=== PATIENT | male | born 1945 | race Caucasian/White ===

== ENCOUNTER 2023-06-04 19:34 | Emergency (ER) | payer MEDICARE ==
[~2023-06-04] VITALS: Ht 165.1 cm; Wt 68.1 kg
--- NOTE | 2023-06-04 21:09 | NUR ---
pt's friend called named Sher he has power of banking supervisor on this pt. please call with info. [phone]
[2023-06-04 21:24] LABS: BASOPHILS % (AUTO) 0.3 % (0-1); EOSINOPHILS # (AUTO) 0.2 X10'3 (0-0.9); HEMATOCRIT 40.6 % (42.0-52.0); LYMPHOCYTES # (AUTO) 0.8 X10'3 (1.1-4.8); LYMPHOCYTES % (AUTO) 10.8 % (21-51); MEAN CORPUSCULAR HEMOGLOBIN 31.9 PG (27.0-31.0); MEAN CORPUSCULAR HGB CONC 34.6 g/dL (33.0-36.5); MEAN CORPUSCULAR VOLUME 92.3 FL (78-98); MEAN PLATELET VOLUME 6.8 FL (7.4-10.4); MONOCYTES # (AUTO) 0.9 X10'3 (0-0.9); MONOCYTES % (AUTO) 12.3 % (2-12); NEUTROPHILS # (AUTO) 5.5 X10'3 (1.8-7.7); NEUTROPHILS % (AUTO) 73.6 % (42-75); PLATELET COUNT 326 X10'3 (140-440); RED CELL DISTRIBUTION WIDTH 13.7 % (11.5-14.5); WHITE BLOOD COUNT 7.5 X10'3 (4.5-11.0)
[2023-06-04 21:32] LABS: ALANINE AMINOTRANSFERASE 23 U/L (12-78); ALBUMIN 2.2 G/DL (3.4-5.0); ALBUMIN/GLOBULIN RATIO 0.6 (1.1-1.5); ALKALINE PHOSPHATASE 66 IU/L (46-116); ANION GAP 4 (8-16); ASPARTATE AMINO TRANSFERASE 23 U/L (10-37); BILIRUBIN,TOTAL 0.6 MG/DL (0.1-1.0); BLOOD UREA NITROGEN 13 MG/DL (7-18); BUN/CREATININE RATIO 17.8 (10.0-20.0); CALCIUM 8.6 MG/DL (8.5-10.1); CHLORIDE 101 MMOL/L (99-107); CREATININE 0.73 MG/DL (0.60-1.10); GLUCOSE 115 MG/DL (70-104); POTASSIUM 3.6 MMOL/L (3.5-5.1); SODIUM 134 MMOL/L (135-145); TOTAL CARBON DIOXIDE 28.9 MMOL/L (24-32); TOTAL PROTEIN 5.6 G/DL (6.4-8.2); eCRCL 74 ML/MIN; eGFR > 90 ML/MIN
[2023-06-04 21:40] LABS: PRO BRAIN NATRIURETIC PEPTIDE 636 PG/ML (0-450)
[2023-06-04] MEDS ORDERED: albuterol 2.5 MG/3 ML nebule CONTNEB PRN (21:50)
[2023-06-04] MEDS ORDERED: methylPREDNISolone sod succ 125mg/2ml vial IV ONE (21:50)
[2023-06-04] MEDS ORDERED: ipratropium 0.5 MG/2.5ML nebule IH ONE (21:50)
[2023-06-04 22:04] VITALS: PULSE 94; RESP 28; O2SAT 93
[2023-06-04 22:20] VITALS: TEMP 98.8
[2023-06-04 23:06] VITALS: PULSE 107; RESP 24; O2SAT 90
[2023-06-04] MEDS ORDERED: PRED20TA PO (23:45)
[2023-06-04] MEDS ORDERED: ALBU8HFA PO (23:45)
[2023-06-05 00:17] VITALS: BP 101/59; PULSE 112; RESP 30; O2SAT 90
--- NOTE | 2023-06-05 00:40 | NUR ---
Pt O2 saturation 91% at d/c, aware
== END 2023-06-05 00:51 ==
LOC: ER 19:35
DX: J44.1 Chronic obstructive pulmonary disease with (acute) exacerbation (principal); Z79.899 Other long term (current) drug therapy
CPT/HCPCS: 36415; 71045; 80053; 83605; 83880; 84145; 84484; 85025; 87040; 93005; 94640; 94644; 96374; 99285; J2930; 94760; A4615; A7015

== ENCOUNTER 2023-07-20 05:26 | Emergency (ER) | payer MEDICARE ==
[~2023-07-20] VITALS: Ht 170.2 cm; Wt 60.0 kg
--- NOTE | 2023-07-20 05:42 | NUR ---
Following report to MD, verbal orders recieved for diagnostic studies.
--- NOTE | 2023-07-20 06:15 | NUR ---
Assumed care of patient. Pt resting comfortably. No s/s of distress.
[2023-07-20] MEDS ORDERED: FLUT12AE5 INH (06:24)
[2023-07-20] MEDS ORDERED: ALEN70TA80 PO (06:24)
[2023-07-20] MEDS ORDERED: FLO0.4C (06:26)
[2023-07-20] MEDS ORDERED: UMEC62.5 INH (06:26)
[2023-07-20] MEDS ORDERED: ATOR20TA66 PO (06:26)
[2023-07-20 06:27] LABS: BASOPHILS # (AUTO) 0.1 X10'3 (0-0.2); HEMOGLOBIN 12.6 g/dl (14.0-17.9); MEAN CORPUSCULAR VOLUME 92.2 FL (78-98)
[2023-07-20 06:29] LABS: BASOPHILS % (AUTO) 1.1 % (0-1); EOSINOPHILS # (AUTO) 0.1 X10'3 (0-0.9); HEMATOCRIT 37.3 % (42.0-52.0); LYMPHOCYTES # (AUTO) 1.1 X10'3 (1.1-4.8); LYMPHOCYTES % (AUTO) 12.5 % (21-51); MEAN CORPUSCULAR HEMOGLOBIN 31.2 PG (27.0-31.0); MEAN CORPUSCULAR HGB CONC 33.9 g/dL (33.0-36.5); MONOCYTES # (AUTO) 1.2 X10'3 (0-0.9); MONOCYTES % (AUTO) 13.3 % (2-12); NEUTROPHILS # (AUTO) 6.3 X10'3 (1.8-7.7); NEUTROPHILS % (AUTO) 72.1 % (42-75); PLATELET COUNT 470 X10'3 (140-440); RED BLOOD COUNT 4.05 X10'6 (4.70-6.10); RED CELL DISTRIBUTION WIDTH 13.8 % (11.5-14.5); WHITE BLOOD COUNT 8.7 X10'3 (4.5-11.0)
[2023-07-20 06:38] LABS: D-DIMER 1.53 MG/L FEU (0-0.50)
[2023-07-20 06:39] LABS: ANION GAP 7 (8-16); BLOOD UREA NITROGEN 12 MG/DL (7-18); BUN/CREATININE RATIO 17.1 (10.0-20.0); CALCIUM 8.3 MG/DL (8.5-10.1); CHLORIDE 102 MMOL/L (99-107); GLUCOSE 106 MG/DL (70-104); POTASSIUM 3.9 MMOL/L (3.5-5.1); SODIUM 136 MMOL/L (135-145); eCRCL 74 ML/MIN; eGFR > 90 ML/MIN
[2023-07-20 06:40] LABS: ALANINE AMINOTRANSFERASE 19 U/L (12-78); ALBUMIN/GLOBULIN RATIO 0.5 (1.1-1.5); ALKALINE PHOSPHATASE 80 IU/L (46-116); ASPARTATE AMINO TRANSFERASE 17 U/L (10-37); BILIRUBIN,TOTAL 0.6 MG/DL (0.1-1.0); TOTAL PROTEIN 5.7 G/DL (6.4-8.2)
[2023-07-20 06:48] LABS: PRO BRAIN NATRIURETIC PEPTIDE 394 PG/ML (0-450)
[2023-07-20] MEDS ORDERED: iohexol 350MG/ML 100ml bottle IV ONE (07:10)
--- NOTE | 2023-07-20 07:40 | NUR ---
PT WENT TO CT AND IS BACK NOW RESTING COMFORTABLY IN [facility].
--- NOTE | 2023-07-20 09:16 | NUR ---
Patient resting with lights out and requested the door stays closed with all the noise.
[2023-07-20] MEDS ORDERED: predniSONE 20 mg tablet PO ONE (09:30)
[2023-07-20] MEDS ORDERED: azithromycin 250mg tablet PO ONE (09:30)
[2023-07-20] MEDS ORDERED: PRED20TA PO ×2 (09:31→09:32)
[2023-07-20] MEDS ORDERED: AZIT-164 PO ×2 (09:31→09:32)
--- NOTE | 2023-07-20 10:10 | NUR ---
This RN attempted to reach [facility] regarding update on plan of care and to go over discharge instructions. Left callback number. Will attempt again at a later time.
--- NOTE | 2023-07-20 10:57 | NUR ---
Spoke w/ building services supervisor at [facility] regarding discharge papers. Staff verbalized understanding to printed rx and discharge instructions. [employer] is their preferred transportation service. Will arrange.
[2023-07-20 11:09] VITALS: BP 110/67; PULSE 92; RESP 20; TEMP 98; O2SAT 92
== END 2023-07-20 12:10 | disposition home or self-care (01) ==
LOC: ER 05:27
DX: J40 Bronchitis, not specified as acute or chronic (principal); R91.8 Other nonspecific abnormal finding of lung field
CPT/HCPCS: 36415; 71045; 71275; 80053; 83880; 84145; 84484; 85025; 85379; 93005; 99285; J3490; J7512; Q9967

== ENCOUNTER 2023-09-09 21:45 | Inpatient (IN) | payer MEDICARE ==
[~2023-09-09] VITALS: Ht 182.9 cm; Wt 48.5 kg
[~2023-09-09 21:45] MED LIST: ALEN70TA80 PO; ATOR20TA66 PO; AZIT-164 PO; FLO0.4C; FLUT12AE5 INH; PRED20TA PO; UMEC62.5 INH
[2023-09-09] MEDS: methylPREDNISolone sod succ 125mg/2ml vial IV ONE (22:42)
[2023-09-09] MEDS: azithromycin/NS 500mg/250ml 250 ML IV ONE (22:42)
[2023-09-09 22:53] LABS: BASOPHILS % (AUTO) 0.5 % (0-1); EOSINOPHILS % (AUTO) 0.9 % (0-6); HEMATOCRIT 42.6 % (42.0-52.0); HEMOGLOBIN 14.2 g/dl (14.0-17.9); LYMPHOCYTES # (AUTO) 0.6 X10'3 (1.1-4.8); LYMPHOCYTES % (AUTO) 10.9 % (21-51); MEAN CORPUSCULAR HEMOGLOBIN 30.6 PG (27.0-31.0); MEAN CORPUSCULAR HGB CONC 33.3 g/dL (33.0-36.5); MEAN PLATELET VOLUME 7.3 FL (7.4-10.4); MONOCYTES # (AUTO) 0.9 X10'3 (0-0.9); MONOCYTES % (AUTO) 16.4 % (2-12); NEUTROPHILS % (AUTO) 71.3 % (42-75); PLATELET COUNT 222 X10'3 (140-440); RED BLOOD COUNT 4.63 X10'6 (4.70-6.10); WHITE BLOOD COUNT 5.6 X10'3 (4.5-11.0)
[2023-09-09 22:57] VITALS: PULSE 100; RESP 30; O2SAT 95
[2023-09-09] MEDS: ipratropium/albuterol 3ml nebule NEB ONE (22:57)
[2023-09-09 23:06] VITALS: PULSE 102; RESP 26
[2023-09-09 23:11] LABS: ALANINE AMINOTRANSFERASE 13 U/L (12-78); ALBUMIN 2.6 G/DL (3.4-5.0); ALBUMIN/GLOBULIN RATIO 0.8 (1.1-1.5); ALKALINE PHOSPHATASE 94 IU/L (46-116); ANION GAP 4 (8-16); ASPARTATE AMINO TRANSFERASE 25 U/L (10-37); BILIRUBIN,TOTAL 0.9 MG/DL (0.1-1.0); BLOOD UREA NITROGEN 12 MG/DL (7-18); CHLORIDE 99 MMOL/L (99-107); CREATININE 0.75 MG/DL (0.60-1.10); GLUCOSE 114 MG/DL (70-104); PRO BRAIN NATRIURETIC PEPTIDE 464 PG/ML (0-450); SODIUM 137 MMOL/L (135-145); TOTAL CARBON DIOXIDE 33.9 MMOL/L (24-32); eCRCL 8 ML/MIN; eGFR > 90 ML/MIN
[2023-09-09 23:21] LABS: PLATELET ESTIMATE NORMAL; TOTAL CELLS COUNTED 100
[2023-09-09 23:23] LABS: POTASSIUM 2.9 MMOL/L (3.5-5.1)
[2023-09-09 23:26] LABS: ELLIPTOCYTES FEW
[2023-09-09] MEDS: potassium Cl 20 mEq SR tablet PO STA (23:41)
[2023-09-10] VITALS (15 sets, daily range): BP systolic 99–130; BP diastolic 63–82; PULSE 80–89; RESP 13–26; TEMP 97.5–97.9; O2SAT 90–98
[2023-09-10] MEDS ORDERED: magnesium 4gm in 100ml NS 100 ML IV PRN (01:20)
[2023-09-10] MEDS ORDERED: acetaminophen 325mg tablet PO PRN (01:20)
[2023-09-10] MEDS ORDERED: PERFLUTREN PROTEIN-A MICROSPHR (Optison) 0.22 MG/ML 3ML VIAL IV PRN (01:20)
[2023-09-10] MEDS ORDERED: HYDROcodone/acetaminophen 5mg/325mg tablet PO PRN (01:20)
[2023-09-10] MEDS ORDERED: magnesium 2GM in 50ml NS 50 ML IV PRN (01:20)
[2023-09-10] MEDS ORDERED: magnesium Cl slow-release 64mg tablet PO PRN (01:20)
[2023-09-10] MEDS ORDERED: ondansetron/PF 4mg/2ml inj IV PRN (01:20)
[2023-09-10] MEDS ORDERED: morphine 2 MG/ML inj. syringe IV PRN (01:20)
[2023-09-10] MEDS ORDERED: potassium Cl 20 mEq SR tablet PO PRN (01:20)
[2023-09-10] MEDS ORDERED: potassium Cl 40MEQ/1/2NS 520ml 520 ML IV PRN (01:20)
[2023-09-10 03:07] LABS: MAGNESIUM 1.5 MG/DL (1.5-2.4); POTASSIUM 3.3 MMOL/L (3.5-5.1)
[2023-09-10] MEDS ORDERED: iohexol 300mg/ml 100ml inj. ONE (05:34)
[2023-09-10] MEDS: potassium Cl 20 mEq SR tablet PO PRN (07:31)
[2023-09-10] MEDS: K and/or MAG REPLACEMENT MC SCH (08:00)
[2023-09-10] MEDS ORDERED: methylPREDNISolone sod succ/PF 40mg inj. IV SCH (08:00)
[2023-09-10 09:38] LABS: ABG BASE EXCESS 5.6 mmol/L (-2.0-2.0); ABG OXYGEN SATURATION 94.7 % (94-97); ABG PCO2 (T) 47.8 mmHg (35.0-48.0); ABG PH (T) 7.429 (7.340-7.440); ABG PO2 (T) 74.6 mmHg (75.0-100.0); ALLEN'S TEST POSITIVE; FCOHb 0.6 % (0.0-3.9); FHHb 5.3 % (0.0-5.0); FLOW 4 L/min; FMetHb 0.3 % (0.0-1.5); FO2Hb 93.8 % (94-97); MODE NASAL CANNULA; PATIENT TEMPERATURE 36.7; TOTAL HEMOGLOBIN 13.8 G/dl (14.0-17.9)
[2023-09-10] MEDS: budesonide 0.5mg/2ml UD nebule IH SCH (09:42)
[2023-09-10] MEDS: albuterol 2.5 MG/3 ML nebule NEB PRN (09:43)
[2023-09-10] MEDS: heparin, porcine 5000 units/ml vial SQ SCH (10:16)
[2023-09-10] MEDS: CefTRIAXone/D5W-Rocephin 1gm 50 ML IV SCH (10:17)
[2023-09-10] MEDS ORDERED: BETA45OI5 TOP (11:42)
[2023-09-10] MEDS ORDERED: IBUP-1986 PO (11:42)
[2023-09-10] MEDS ORDERED: NIAC500T44 PO (11:42)
[2023-09-10] MEDS ORDERED: CHOL10003 PO (11:42)
[2023-09-10] MEDS ORDERED: IPRA3AMP31 IH (11:42)
[2023-09-10] MEDS ORDERED: HYDR12.55 PO (11:42)
[2023-09-10] MEDS ORDERED: LIPA1CAP PO (11:42)
[2023-09-10] MEDS ORDERED: ASPI-1265 PO (11:42)
[2023-09-10] MEDS ORDERED: TRIA60LO11 TOP (11:42)
[2023-09-10] MEDS ORDERED: FURO-150 PO (11:42)
[2023-09-10] MEDS ORDERED: ALBU8HFA INH (11:42)
[2023-09-10] MEDS ORDERED: FLUT16SP26 BOTHNARES (11:42)
[2023-09-10] MEDS: ipratropium/albuterol 3ml nebule NEB SCH (11:48)
[2023-09-10] MEDS: methylPREDNISolone sod succ/PF 40mg inj. IV SCH (12:53)
[2023-09-10] MEDS ORDERED: non-formulary drug (Alendronate Sodium 1 TAB) PO SCH (16:05)
[2023-09-10] MEDS: betamethasone diprop. 0.05% ointment 15gm TP SCH (19:31)
[2023-09-10] MEDS ORDERED: TRIAMCINOLONE ACETONIDE TOP SCH (20:00)
[2023-09-10] MEDS: azithromycin/NS 500mg/250ml 250 ML IV SCH (22:33)
[2023-09-11] VITALS (24 sets, daily range): BP systolic 111–129; BP diastolic 54–85; PULSE 66–87; RESP 18–36; TEMP 97.1–98.2; O2SAT 90–99
[2023-09-11] MEDS ORDERED: NIACINAMIDE PO SCH (07:30)
[2023-09-11 07:45] LABS: BASOPHILS % (AUTO) 0 % (0-1); EOSINOPHILS % (AUTO) 0 % (0-6); HEMATOCRIT 37.8 % (42.0-52.0); HEMOGLOBIN 12.7 g/dl (14.0-17.9); LYMPHOCYTES # (AUTO) 0.4 X10'3 (1.1-4.8); LYMPHOCYTES % (AUTO) 4.7 % (21-51); MEAN CORPUSCULAR HEMOGLOBIN 30.4 PG (27.0-31.0); MEAN CORPUSCULAR HGB CONC 33.5 g/dL (33.0-36.5); MEAN CORPUSCULAR VOLUME 90.9 FL (78-98); MEAN PLATELET VOLUME 7.2 FL (7.4-10.4); MONOCYTES # (AUTO) 0.5 X10'3 (0-0.9); MONOCYTES % (AUTO) 5.9 % (2-12); NEUTROPHILS # (AUTO) 7.5 X10'3 (1.8-7.7); NEUTROPHILS % (AUTO) 89.4 % (42-75); PLATELET COUNT 234 X10'3 (140-440); RED BLOOD COUNT 4.16 X10'6 (4.70-6.10); RED CELL DISTRIBUTION WIDTH 14.9 % (11.5-14.5); WHITE BLOOD COUNT 8.4 X10'3 (4.5-11.0)
[2023-09-11] MEDS: LIPASE/PROTEASE/AMYLASE 4,200 unit CAPSULE.DR PO SCH (07:45)
[2023-09-11] MEDS: LIPASE/PROTEASE/AMYLASE 10,500 units CAPSULE.DR PO SCH (07:45)
[2023-09-11] MEDS: fluticasone nasal spray 16GM bottle NS SCH (07:46)
[2023-09-11] MEDS: aspirin 81mg tab.chew PO SCH (07:46)
[2023-09-11] MEDS: cholecalciferol (vitamin D3) 1,000 unit (25mcg) tablet PO SCH (07:47)
[2023-09-11] MEDS: atorvastatin 20mg tablet PO SCH (07:47)
[2023-09-11] MEDS ORDERED: cholecalciferol (vitamin D3) 1,000 unit (25mcg) tablet PO SCH (08:00)
[2023-09-11 08:06] LABS: ALBUMIN 2.4 G/DL (3.4-5.0); ANION GAP 2 (8-16); BLOOD UREA NITROGEN 19 MG/DL (7-18); BUN/CREATININE RATIO 29.7 (10.0-20.0); CALCIUM 8.2 MG/DL (8.5-10.1); CHLORIDE 102 MMOL/L (99-107); CREATININE 0.64 MG/DL (0.60-1.10); GLUCOSE 144 MG/DL (70-104); MAGNESIUM 1.9 MG/DL (1.5-2.4); POTASSIUM 4.4 MMOL/L (3.5-5.1); SODIUM 137 MMOL/L (135-145); TOTAL CARBON DIOXIDE 32.6 MMOL/L (24-32); eCRCL 10 ML/MIN; eGFR > 90 ML/MIN
[2023-09-11] MEDS: carVEDilol 3.125mg tablet PO SCH (08:33)
[2023-09-11] MEDS: furosemide 20 MG/2 ML vial IV SCH (08:33)
[2023-09-11] MEDS: lisinopril 2.5mg tablet PO SCH (08:34)
[2023-09-11] MEDS: furosemide 40mg/4ml inj IV ONE (13:17)
[2023-09-11] MEDS: fluocinonide 0.05% 15gm ointment TP SCH (19:09)
[2023-09-12] VITALS (17 sets, daily range): BP systolic 112–132; BP diastolic 60–86; PULSE 59–78; RESP 18–27; TEMP 97.1–98.3; O2SAT 91–100
[2023-09-12 08:22] LABS: BASOPHILS % (AUTO) 0 % (0-1); EOSINOPHILS % (AUTO) 0 % (0-6); HEMATOCRIT 38.4 % (42.0-52.0); HEMOGLOBIN 13.1 g/dl (14.0-17.9); LYMPHOCYTES # (AUTO) 0.6 X10'3 (1.1-4.8); LYMPHOCYTES % (AUTO) 7.4 % (21-51); MEAN CORPUSCULAR HEMOGLOBIN 31.7 PG (27.0-31.0); MEAN CORPUSCULAR VOLUME 93.3 FL (78-98); MEAN PLATELET VOLUME 7.4 FL (7.4-10.4); MONOCYTES # (AUTO) 0.5 X10'3 (0-0.9); MONOCYTES % (AUTO) 5.8 % (2-12); NEUTROPHILS # (AUTO) 6.8 X10'3 (1.8-7.7); NEUTROPHILS % (AUTO) 86.8 % (42-75); PLATELET COUNT 242 X10'3 (140-440); RED BLOOD COUNT 4.12 X10'6 (4.70-6.10); RED CELL DISTRIBUTION WIDTH 14.9 % (11.5-14.5); WHITE BLOOD COUNT 7.8 X10'3 (4.5-11.0)
[2023-09-12 09:05] LABS: ALBUMIN 2.2 G/DL (3.4-5.0); ANION GAP 3 (8-16); BLOOD UREA NITROGEN 23 MG/DL (7-18); BUN/CREATININE RATIO 37.1 (10.0-20.0); CALCIUM 8.1 MG/DL (8.5-10.1); CHLORIDE 101 MMOL/L (99-107); CREATININE 0.62 MG/DL (0.60-1.10); GLUCOSE 143 MG/DL (70-104); POTASSIUM 4.2 MMOL/L (3.5-5.1); SODIUM 139 MMOL/L (135-145); TOTAL CARBON DIOXIDE 34.9 MMOL/L (24-32); eCRCL 67 ML/MIN; eGFR > 90 ML/MIN
[2023-09-12] MEDS ORDERED: iohexol 350MG/ML 100ml bottle IV ONE (21:39)
[2023-09-13] VITALS (20 sets, daily range): BP systolic 95–153; BP diastolic 58–83; PULSE 47–71; RESP 18–31; TEMP 97.4–98; O2SAT 91–98
[2023-09-13] MEDS: furosemide 40mg/4ml inj IV SCH (08:00)
[2023-09-13 08:10] LABS: BASOPHILS % (AUTO) 0 % (0-1); EOSINOPHILS % (AUTO) 0 % (0-6); HEMATOCRIT 36.8 % (42.0-52.0); HEMOGLOBIN 12.4 g/dl (14.0-17.9); LYMPHOCYTES # (AUTO) 0.5 X10'3 (1.1-4.8); LYMPHOCYTES % (AUTO) 7.5 % (21-51); MEAN CORPUSCULAR HEMOGLOBIN 32.2 PG (27.0-31.0); MEAN CORPUSCULAR HGB CONC 33.8 g/dL (33.0-36.5); MEAN CORPUSCULAR VOLUME 95.4 FL (78-98); MEAN PLATELET VOLUME 7.4 FL (7.4-10.4); MONOCYTES # (AUTO) 0.4 X10'3 (0-0.9); MONOCYTES % (AUTO) 5.4 % (2-12); NEUTROPHILS # (AUTO) 5.9 X10'3 (1.8-7.7); NEUTROPHILS % (AUTO) 87.1 % (42-75); PLATELET COUNT 240 X10'3 (140-440); RED BLOOD COUNT 3.86 X10'6 (4.70-6.10); RED CELL DISTRIBUTION WIDTH 14.9 % (11.5-14.5); WHITE BLOOD COUNT 6.8 X10'3 (4.5-11.0)
[2023-09-13 08:22] LABS: ALBUMIN 2.1 G/DL (3.4-5.0); ANION GAP 1 (8-16); BLOOD UREA NITROGEN 27 MG/DL (7-18); BUN/CREATININE RATIO 37.5 (10.0-20.0); CALCIUM 7.9 MG/DL (8.5-10.1); CHLORIDE 100 MMOL/L (99-107); CREATININE 0.72 MG/DL (0.60-1.10); GLUCOSE 144 MG/DL (70-104); MAGNESIUM 2.2 MG/DL (1.5-2.4); POTASSIUM 4.5 MMOL/L (3.5-5.1); SODIUM 137 MMOL/L (135-145); eCRCL 58 ML/MIN; eGFR > 90 ML/MIN
[2023-09-13] MEDS: LORazepam 0.5 MG tablet PO PRN (16:11)
[2023-09-13] MEDS: azithromycin 250mg tablet PO SCH (21:20)
[2023-09-14] VITALS (8 sets, daily range): BP systolic 134–140; BP diastolic 73–88; PULSE 56–69; RESP 16–22; TEMP 98.1–98.4; O2SAT 92–95
[2023-09-14 06:31] LABS: BASOPHILS % (AUTO) 0 % (0-1); EOSINOPHILS % (AUTO) 0 % (0-6); HEMOGLOBIN 13.6 g/dl (14.0-17.9); LYMPHOCYTES # (AUTO) 0.5 X10'3 (1.1-4.8); LYMPHOCYTES % (AUTO) 8.7 % (21-51); MEAN CORPUSCULAR HEMOGLOBIN 30.4 PG (27.0-31.0); MEAN CORPUSCULAR HGB CONC 33.1 g/dL (33.0-36.5); MEAN CORPUSCULAR VOLUME 91.9 FL (78-98); MEAN PLATELET VOLUME 7.4 FL (7.4-10.4); MONOCYTES # (AUTO) 0.4 X10'3 (0-0.9); MONOCYTES % (AUTO) 6.3 % (2-12); NEUTROPHILS # (AUTO) 5.3 X10'3 (1.8-7.7); PLATELET COUNT 253 X10'3 (140-440); RED BLOOD COUNT 4.46 X10'6 (4.70-6.10); RED CELL DISTRIBUTION WIDTH 14.9 % (11.5-14.5); WHITE BLOOD COUNT 6.2 X10'3 (4.5-11.0)
[2023-09-14 07:00] LABS: ALBUMIN 2.4 G/DL (3.4-5.0); ANION GAP 2 (8-16); BLOOD UREA NITROGEN 25 MG/DL (7-18); CALCIUM 7.5 MG/DL (8.5-10.1); CHLORIDE 97 MMOL/L (99-107); CREATININE 0.61 MG/DL (0.60-1.10); GLUCOSE 146 MG/DL (70-104); MAGNESIUM 2.2 MG/DL (1.5-2.4); POTASSIUM 4.4 MMOL/L (3.5-5.1); SODIUM 135 MMOL/L (135-145); TOTAL CARBON DIOXIDE 36.1 MMOL/L (24-32); eCRCL 68 ML/MIN; eGFR > 90 ML/MIN
[2023-09-14] MEDS ORDERED: LISI2.5T14 PO (14:06)
[2023-09-14] MEDS ORDERED: PRED10TA23 PO (14:06)
[2023-09-14] MEDS ORDERED: COR3.125T PO (14:06)
== END 2023-09-14 17:42 | disposition home health service (06) | DRG 193 ==
LOC: ER 21:46 → ED HOLD 09-10 01:24 → PCU 3S 09-10 07:52
PROVIDERS: ADMIT Internal Medicine; ATTEND Family Medicine
PROC: B32T1ZZ Computerized Tomography (CT Scan) of Left Pulmonary Artery using Low Osmolar Contrast (ICD-10-PCS; principal; 2023-09-10)
PROC: B3201ZZ Computerized Tomography (CT Scan) of Thoracic Aorta using Low Osmolar Contrast (ICD-10-PCS; 2023-09-10)
PROC: B32S1ZZ Computerized Tomography (CT Scan) of Right Pulmonary Artery using Low Osmolar Contrast (ICD-10-PCS; 2023-09-10)
DX: J18.9 Pneumonia, unspecified organism (principal); I50.21 Acute systolic (congestive) heart failure; J96.00 Acute respiratory failure, unspecified whether with hypoxia or hypercapnia; I11.0 Hypertensive heart disease with heart failure; E87.6 Hypokalemia; E78.00 Pure hypercholesterolemia, unspecified; Z66 Do not resuscitate; J43.9 Emphysema, unspecified; Z86.73 Personal history of transient ischemic attack (TIA), and cerebral infarction without residual deficits; Z86.711 Personal history of pulmonary embolism; Z90.411 Acquired partial absence of pancreas; Z87.891 Personal history of nicotine dependence
CPT/HCPCS: 36415; 36600; 71045; 71260; 71275; 80048; 80053; 82803; 83605; 83735; 83880; 84132; 84484; 85007; 85018; 85025; 87040; 87081; 93005; 93306; 93970; 94640; 94664; 94668; 94760; 97116; 97161; 97530; 99285; A4615; A6212; A6258; G0378; J0456; J0696; J1644; J1940; J2920; J2930; J3490; J7040; Q9967

== ENCOUNTER 2024-01-03 12:29 | Outpatient (CLI) | payer MEDICARE ==
[~2024-01-03 12:29] MED LIST changes: +ALBU8HFA INH; -ALEN70TA80 PO; +ASPI-1265 PO; -AZIT-164 PO; +CHOL10003 PO; +FURO-150 PO; +LIPA1CAP PO; +LISI2.5T14 PO; -PRED20TA PO
== END 2024-01-03 23:59 | disposition home or self-care (01) ==
LOC: MRI 12:29
PROVIDERS: ATTEND Family Medicine
DX: G31.89 Other specified degenerative diseases of nervous system (principal); R41.3 Other amnesia; J34.1 Cyst and mucocele of nose and nasal sinus; R90.82 White matter disease, unspecified
CPT/HCPCS: 70551

== ENCOUNTER 2025-04-29 16:22 | Emergency (ER) | payer MEDICARE ==
[~2025-04-29] VITALS: Ht 170.2 cm; Wt 59.1 kg
[~2025-04-29 16:22] MED LIST changes: -FLO0.4C; +TAMS-55
--- NOTE | 2025-04-29 16:43 | Physician Documentation ---
History of Present Illness ~ Chief Complaint: Shortness of Breath Stated Complaint: SOB Time Seen by MD: 16:37 HPI 79-year-old male presents to the ED with a complaint of acute onset shortness of breath. Denies any chest pain or nausea or vomiting. He does have a long hist ory of this COPD. Denies a cough other than his typical chronic cough. Denies any fevers or general malaise. He also denies any history of congestive heart failure however he has notable lower extremity edema. Patient also is normally on 3 L of oxygen. He lives independently at [facility] Day of Onset: Apr 29, 2025 Medication Reconciliation Allergies: Coded Allergies: No Known Allergies (Unverified , 06/04/23) Scheduled Aspirin (Aspirin), 1 TAB PO DAILY, (Reported) Atorvastatin Calcium (Atorvastatin Calcium), 1 TAB PO DAILY, (Reported) Cholecalciferol (Vitamin D3) (Vitamin D3), 1 TAB PO DAILY, (Reported) Fluticasone/Salmeterol (Advair Hfa 230-21 Mcg Inhaler), 2 PUFFS INH BID, (Reported) Furosemide* (Lasix*), 1 TAB PO DAILY, (Reported) Lipase/Protease/Amylase (Pancreaze Dr 37,000 Unit Cap), 36,000 UNITS PO QAM, (Reported) Lisinopril (Lisinopril), 2.5 MG PO DAILY Umeclidinium [place] (Incruse Ellipta), 1 PUFFS INH DAILY, (Reported) Scheduled PRN albuterol inhaler (Pro-Air Inhaler), 2 PUFFS INH Q4HPRN PRN for wheezing, (Reported) Miscellaneous Medications Tamsulosin Hcl* (Flomax*), (Reported) Past Medical History Past Medical History: CVA/TIA/Stroke, High Cholesterol, Hypertension, COPD, Pulmonary Embolism, Pancreatitis Past Surgical History: noncontributory Patient History: Patient reports no known family medical history. Alcohol Use: Occasionally Drug Use: none Lives In: Assisted Care Review of Systems All Other Systems at this time: Reviewed and Negative ROS As stated above in the HPI, otherwise all systems are reviewed and negative. Physical Exam Vital Signs: Temperature: 98.8, Source: Oral, Heart Rate: 82, Respiratory Rate: 18, BP: 131/65, Pulse Oximetry: 95, Weight: 59.090 Oxygen Flow Rate: 3.0 Physical Exam General: Alert, moderate distress. Respiratory: Diminished with crackles on the left side Chest: belly breathing, Cardiovascular: Regular rate and rhythm, no murmurs. Gastrointestinal: Soft, nontender, nondistended. Bowels sounds present. Neurologic: Oriented x4. Psychiatric: Normal mood and affect. Skin: Normal color, warm and dry. No edema, no ecchymosis. Progress Results/Orders Results/Orders Completed Orders - GURPREET PALMER MD Electrocardiogram (04/29/25 19:39) Medications Received in ER Medications (Trade) Dose Ordered Sig/Estefany Route PRN Reason Start Time Stop Time Status Last Admin Dose Admin (Proventil 2.5 MG/3ML nebule) 2.5 mg ONCE ONCE NEB 04/29/25 16:40 04/29/25 16:41 DC 04/29/25 16:47 2.5 MG Vital Signs 04/29/25 04/29/25 04/29/25 04/29/25 16:26 16:39 16:48 16:48 Temp 98.8 Pulse 82 73 75 Resp 18 20 B/P (MAP) 131/65 Pulse Ox 95 99 98 O2 Delivery Nasal Cannula* Nasal Cannula* O2 Flow Rate 3.0 3 3 FiO2 N/A N/A 04/29/25 04/29/25 17:30 18:30 Pulse 67 65 Resp 20 20 B/P (MAP) 112/66 (81) 120/61 (80) Pulse Ox 94 97 O2 Flow Rate 3.0 0 Laboratory Tests Test 04/29/25 16:50 04/29/25 18:33 04/29/25 19:35 White Blood Count 10.2 Red Blood Count 4.09 L Hemoglobin 12.8 L Hematocrit 37.5 L Mean Corpuscular Volume 91.7 Mean Corpuscular Hemoglobin 31.2 H Mean Corpuscular Hemoglobin Concent 34.1 Red Cell Distribution Width 14.8 H Platelet Count 220 Mean Platelet Volume 6.9 L Neutrophils (%) (Auto) 82.3 H Lymphocytes (%) (Auto) 7.3 L Monocytes (%) (Auto) 8.7 Eosinophils (%) (Auto) 1.2 Basophils (%) (Auto) 0.5 Neutrophils # (Auto) 8.4 H Lymphocytes # (Auto) 0.7 L Monocytes # (Auto) 0.9 Eosinophils # (Auto) 0.1 Basophils # (Auto) 0.1 CBC Comment Sodium Level 138 Potassium Level 4.3 Chloride Level 103 Carbon Dioxide Level 32.9 H Anion Gap 2 L Blood Urea Nitrogen 22 H Creatinine 0.85 Estimated GFR/1.73 m2 87 BUN/Creatinine Ratio 25.9 H Glucose Level 162 H Calcium Level 8.6 Total Bilirubin 0.5 Aspartate Amino Transf (AST/SGOT) 30 Alanine Aminotransferase (ALT/SGPT) 32 Alkaline Phosphatase 88 Troponin I High Sensitivity 12 13 Pro-B-Type Natriuretic Peptide 632 H Total Protein 6.0 L Albumin 2.8 L Globulin 3.2 Albumin/Globulin Ratio 0.9 L Chemistry Comments Troponin I High Sens Percent Delta 8 Troponin I Hi Sens Absolute Change 1 Medical Decision Making Findings Patient presented to the emergency room brought in by ambulance for shortness of breath. Differentials include but are not limited to anxiety, COPD exacerbation, CHF exacerbation, pulmonary embolism therefore emergent labs and imaging indicated. Labs and imaging is reassuring. Patient received a DuoNeb in route and feels much better and feels like he is safe for discharge. Upon re-evaluation no wheezing on auscultation. Differential Dx:Considerations: Include: anxiety, asthma, bronchitis, cardiogenic shock, CHF, COPD, dysrhythmia, hypertension, accelerated, hypertension, essential, hypertension, malignant, hyperventilation, hyponatremia, myocardial infarction, panic attack, pneumonia, pneumonitis, pneumothorax, PSVT, pulmonary embolism, respiratory distress, respiratory failure, sinusitis, upper resp. infection, other Departure Disposition: 01 HOME / SELF CARE / HOMELESS Impression: Primary Impression: COPD exacerbation Condition: Improved Discharge Instructions: Supporting Someone With COPD Referrals: NO PRIMARY CARE PROVIDER (PCP) Signature Scribe Signature: f Attestation: The note accurately reflects work and decisions made by me.Gurpreet Palmer MD 04/29/25 19:55 Scribed for Kiesha Sultana Target Network Analyst by Kiesha Johnson NP . 04/29/25 16:44 KIESHA SULTANA NP Apr 29, 2025 16:43 GURPREET PALMER MD Apr 29, 2025 19:55
[2025-04-29] MEDS: albuterol 2.5 MG/3 ML nebule NEB ONE (16:47)
[2025-04-29 16:48] VITALS: PULSE 73; PULSE 75; RESP 20; O2SAT 98; O2SAT 99
[2025-04-29 16:56] LABS: MEAN PLATELET VOLUME 6.9 FL (7.4-10.4); RED CELL DISTRIBUTION WIDTH 14.8 % (11.5-14.5)
--- NOTE | 2025-04-29 17:02 | ELECTROCARDIOGRAPH REPORT ---
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
--- NOTE | 2025-04-29 17:14 | RADIOLOGY REPORT ---
CHEST RADIOGRAPH Indication: CP Technique: DI CHEST,SINGLE VIEW Comparison: None FINDINGS: The cardiac silhouette is unremarkable. The lungs demonstrate perihilar and bibasilar airspace opacities, [id number]-welt-[id number]. The pulmonary vasculature is prominent. There is no pleural effusion. There is no pneumothorax. Aortic atherosclerotic disease IMPRESSION: As above . Follow-up to resolution.
[2025-04-29 17:25] LABS: CREATININE 0.85 MG/DL (0.60-1.10); PRO BRAIN NATRIURETIC PEPTIDE 632 PG/ML (0-450); TOTAL CARBON DIOXIDE 32.9 MMOL/L (24-32); eCRCL 59 ML/MIN; eGFR 87 ML/MIN
--- NOTE | 2025-04-29 18:54 | RADIOLOGY REPORT ---
EXAM: CT CTA CHEST CT ABD PELVIS INDICATION: Pain TECHNIQUE: CT angiogram was performed following uncomplicated administration of intravenous contrast. Sagittal and coronal reformatted images as well as maximum intensity projection images and 3D volume renderings were generated and evaluated. Coronal and sagittal reformations and maximum intensity projection images were created from the transaxial source data by the sleep technologist and workstation, as well as 3-D volume rendered images. COMPARISON: None available. [VASCULAR FINDINGS]: [THORACIC AORTA]: Normal caliber [ABDOMINAL AORTA]: Normal caliber [CELIAC]: Patent [SMA]: Patent [LINDA]: Patent [RENALS]: Patent [ILIACS]: Patent [FEMORALS]: Patent [PULMONARY ARTERIES]: No pulmonary arterial filling defect. Normal caliber of the main pulmonary artery. No evidence of elevated right heart pressures. [CARDIOVASCULAR]: Normal cardiac size. No pericardial effusion. No aneurysmal dilatation of the great vessels. No significant coronary artery calcifications. NON-VASCULAR FINDINGS: [LOWER NECK]: Unremarkable [LYMPH NODES/MEDIASTINUM]: No abnormal lymph nodes by CT size criteria [LUNG PARENCHYMA/PLEURAL SPACE]: Trace right-sided pleural effusion. Severe centrilobular emphysema with bullous architectural distortion and subsequent hyperinflation. Pleural-parenchymal scarring in bilateral lung bases. Areas of mucoid impaction in the posterior basilar segment, right lower lobe. No pleural effusion or pneumothorax. [CHEST WALL]: Unremarkable. [LIVER]: Hepatomegaly [SPLEEN]: Unremarkable. [PANCREAS]: Abnormal pancreatic ductal dilation with surrounding atrophy. Main pancreatic duct measures up to 8 mm. No discrete measurable lesion however maintain elevated concern for malignancy. Consider correlation with laboratory values. [GALLBLADDER AND BILIARY TREE]: Pneumobilia [ADRENAL GLANDS]: Unremarkable [KIDNEYS]: No hydronephrosis. No nephroureterolithiasis. Benign appearing renal cysts. [BLADDER]: Unremarkable for the degree distention. [PELVIC ORGANS]: Unremarkable. [BOWEL/MESENTERY]: To mild stool burden. Transverse colonic herniation with broad-based ventral abdominal hernia 6.3 cm neck. [ASCITES]: Absent [LYMPHADENOPATHY]: No pathologically enlarged lymph nodes by CT size criteria [VASCULATURE]: Vascular calcifications. [ABDOMINAL WALL]: Ventral abdominal hernia with 6.3 cm neck [MUSCULOSKELETAL]: No acute fracture or aggressive focal osseous lesion. Multifocal degenerative change of the visualized spine. IMPRESSION: 1. No CT angiogram evidence of aortic dissection, intramural hematoma, or aneurysmal dilation. 2. No CTA evidence of pulmonary embolism. 3. Persistent area possible postobstructive chronic atelectasis and/or scarring in the right lung base. 4. Dilated main pancreatic duct measuring up to 8 mm without discrete measurable mass or appearance of visualization of the pancreatic head/ uncinate process. Correlate with surgical history for Whipple procedure. Pneumobilia. 5. Uwgv-[id number]-[id number] stool burden and correlate for constipation.
--- NOTE | 2025-04-29 19:45 | ELECTROCARDIOGRAPH REPORT ---
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
[2025-04-29 20:41] VITALS: BP 106/60; PULSE 90; RESP 26; TEMP 98.6; O2SAT 93
== END 2025-04-29 20:45 | disposition home or self-care (01) ==
LOC: ER 16:23
DX: J44.1 Chronic obstructive pulmonary disease with (acute) exacerbation (principal); E78.00 Pure hypercholesterolemia, unspecified; I10 Essential (primary) hypertension; Z86.73 Personal history of transient ischemic attack (TIA), and cerebral infarction without residual deficits; Z79.82 Long term (current) use of aspirin
CPT/HCPCS: 36415; 71045; 71275; 74177; 80053; 83880; 84484; 85025; 93005; 94640; 99285; Q9967